=== PATIENT | female | born 1945 | race Caucasian/White ===

== ENCOUNTER 2022-09-03 05:39 | Emergency (ER) | payer MEDICARE, BC ==
[~2022-09-03] VITALS: Ht 165.1 cm; Wt 97.6 kg
[2022-09-03] MEDS ORDERED: ondansetron/PF 4mg/2ml inj IV ONE (06:50)
[2022-09-03] MEDS ORDERED: morphine 4 MG/ML inj SYRINge IV PRN (06:50)
[2022-09-03 07:06] LABS: BASOPHILS # (AUTO) 0.1 X10'3 (0-0.2); BASOPHILS % (AUTO) 0.8 % (0-1); EOSINOPHILS # (AUTO) 0.1 X10'3 (0-0.9); HEMATOCRIT 42.7 % (35.0-45.0); HEMOGLOBIN 15.2 g/dl (12.0-16.0); LYMPHOCYTES # (AUTO) 1.9 X10'3 (1.1-4.8); LYMPHOCYTES % (AUTO) 23.3 % (21-51); MEAN CORPUSCULAR HEMOGLOBIN 29.4 PG (27.0-31.0); MEAN CORPUSCULAR HGB CONC 35.6 g/dL (33.0-36.5); MEAN CORPUSCULAR VOLUME 82.7 FL (78-98); MEAN PLATELET VOLUME 7.9 FL (7.4-10.4); MONOCYTES # (AUTO) 0.9 X10'3 (0-0.9); NEUTROPHILS # (AUTO) 5.3 X10'3 (1.8-7.7); NEUTROPHILS % (AUTO) 63.9 % (42-75); PLATELET COUNT 386 X10'3 (140-440); RED BLOOD COUNT 5.17 X10'6 (4.20-5.60); RED CELL DISTRIBUTION WIDTH 13.9 % (11.5-14.5); WHITE BLOOD COUNT 8.3 X10'3 (4.5-11.0)
[2022-09-03 07:17] LABS: ALANINE AMINOTRANSFERASE 44 U/L (12-78); ALBUMIN 3.3 G/DL (3.4-5.0); ALBUMIN/GLOBULIN RATIO 0.8 (1.1-1.5); ALKALINE PHOSPHATASE 58 IU/L (46-116); ANION GAP 15 (8-16); ASPARTATE AMINO TRANSFERASE 23 U/L (10-37); BILIRUBIN,TOTAL 0.6 MG/DL (0.1-1.0); BLOOD UREA NITROGEN 21 MG/DL (7-18); BUN/CREATININE RATIO 21.6 (6.6-38.0); CALCIUM 9.1 MG/DL (8.5-10.1); CHLORIDE 91 MMOL/L (99-107); CREATININE 0.97 MG/DL (0.40-0.90); GLUCOSE 115 MG/DL (70-104); POTASSIUM 3.2 MMOL/L (3.5-5.1); SODIUM 131 MMOL/L (135-145); TOTAL CARBON DIOXIDE 25.5 MMOL/L (24-32); TOTAL PROTEIN 7.3 G/DL (6.4-8.2); eGFR 56 ML/MIN
[2022-09-03 07:24] LABS: LIPASE 265 U/L (73-393)
[2022-09-03] MEDS ORDERED: POTASSIUM BICARB 20meq eff tab 20 MEQ TABLET.EFF PO ONE (09:00)
[2022-09-03] MEDS ORDERED: proCHLORperazine 10 MG/2 ml inj IV ONE (09:25)
[2022-09-03] MEDS ORDERED: diphenhydrAMINE 50 mg/ml inj IV ONE (09:25)
[2022-09-03] MEDS ORDERED: ONDA4TAB12 PO (09:51)
[2022-09-03] MEDS ORDERED: normal saline 1000ML IV soln IVB ONE (09:55)
[2022-09-03 10:15] LABS: GLUCOSE, URINE NEGATIVE (Neg); KETONES,URINE TRACE mg/dl (Neg); LEUKOCYTE ESTERASE ,URINE NEGATIVE (Neg); NITRITES, URINE POSITIVE (Neg); OCCULT BLOOD,URINE TRACE-INTACT (Neg); PH,URINE 5.5 (4.8-8.0); PROTEIN,URINE 100 mg/dl (Neg); UROBILINOGEN,URINE 0.2 E.U/dL (0.2-1.0)
[2022-09-03 10:25] LABS: UA COLLECTION TYPE CLN CATCH MIDSTREAM
[2022-09-03 10:26] LABS: CLARITY,URINE SLIGHTLY CLOUDY (Clear); COLOR,URINE DARK YELLOW (Yellow)
[2022-09-03 10:59] LABS: BACTERIA,URINE 4+ /HPF (Neg); RBC,URINE NONE SEEN /HPF (0-2); SQUAMOUS EPITHELIAL CELL,UR MODERATE /LPF (FEW)
[2022-09-03 11:23] VITALS: BP 148/79
== END 2022-09-03 11:27 | disposition home or self-care (01) ==
LOC: ER 05:42
DX: R11.2 Nausea with vomiting, unspecified (principal); R10.9 Unspecified abdominal pain; R07.9 Chest pain, unspecified; E87.6 Hypokalemia; I10 Essential (primary) hypertension; E78.00 Pure hypercholesterolemia, unspecified; Z79.899 Other long term (current) drug therapy
CPT/HCPCS: 36415; 71045; 80053; 81001; 83690; 83880; 84484; 85025; 87088; 93005; 96374; 96375; 99285; J0780; J2270; J2405; J7030; 87077; 87186

== ENCOUNTER 2023-02-06 07:03 | Day surgery (SDC) | payer MEDICARE, BC ==
[2023-02-05 11:39] LABS: BASOPHILS # (AUTO) 0.1 X10'3 (0-0.2); BASOPHILS % (AUTO) 0.5 % (0-1); EOSINOPHILS # (AUTO) 0.2 X10'3 (0-0.9); EOSINOPHILS % (AUTO) 2.1 % (0-6); HEMATOCRIT 43.2 % (35.0-45.0); HEMOGLOBIN 14.2 g/dl (12.0-16.0); LYMPHOCYTES # (AUTO) 2.5 X10'3 (1.1-4.8); LYMPHOCYTES % (AUTO) 21.1 % (21-51); MEAN CORPUSCULAR HEMOGLOBIN 27.5 PG (27.0-31.0); MEAN CORPUSCULAR HGB CONC 32.7 g/dL (33.0-36.5); MEAN CORPUSCULAR VOLUME 83.8 FL (78-98); MEAN PLATELET VOLUME 8.7 FL (7.4-10.4); MONOCYTES # (AUTO) 1.1 X10'3 (0-0.9); NEUTROPHILS # (AUTO) 8.1 X10'3 (1.8-7.7); NEUTROPHILS % (AUTO) 67.3 % (42-75); PLATELET COUNT 252 X10'3 (140-440); RED BLOOD COUNT 5.15 X10'6 (4.20-5.60); RED CELL DISTRIBUTION WIDTH 14.8 % (11.5-14.5)
[2023-02-05 11:50] LABS: ALBUMIN 3.7 G/DL (3.4-5.0); ANION GAP 8 (8-16); BLOOD UREA NITROGEN 29 MG/DL (7-18); BUN/CREATININE RATIO 26.1 (10.0-20.0); CALCIUM 9.4 MG/DL (8.5-10.1); CHLORIDE 102 MMOL/L (99-107); CREATININE 1.11 MG/DL (0.40-0.90); GLUCOSE 101 MG/DL (70-104); POTASSIUM 3.9 MMOL/L (3.5-5.1); SODIUM 140 MMOL/L (135-145); TOTAL CARBON DIOXIDE 29.8 MMOL/L (24-32); eGFR 48 ML/MIN
[2023-02-05 11:53] LABS: APTT 25 SECONDS (22-32)
[2023-02-06] VITALS (9 sets, daily range): BP systolic 111–153; BP diastolic 68–98
[~2023-02-06] VITALS: Ht 162.6 cm; Wt 102.0 kg
[~2023-02-06 07:03] MED LIST: ONDA4TAB12 PO
[2023-02-06] MEDS ORDERED: LORazepam 0.5 MG tablet PO PRN (07:15)
[2023-02-06] MEDS ORDERED: diphenhydrAMINE 25mg capsule PO PRN (07:15)
[2023-02-06] MEDS ORDERED: normal saline 1,000 ML IV SCH (07:15)
[2023-02-06] MEDS ORDERED: PRE5T PO (07:42)
[2023-02-06] MEDS ORDERED: mag PO (07:42)
[2023-02-06] MEDS ORDERED: BIOT1CAP3 PO (07:42)
[2023-02-06] MEDS ORDERED: CIDE300T3 PO (07:42)
[2023-02-06] MEDS ORDERED: ROSU5TAB12 PO (07:42)
[2023-02-06] MEDS ORDERED: MULT-1085 PO (07:42)
[2023-02-06] MEDS ORDERED: [UNRECOGNIZED DRUG - OTHER] INH (07:42)
[2023-02-06] MEDS ORDERED: AMLO5TAB16 PO (07:42)
[2023-02-06] MEDS ORDERED: PRAM0.5T12 PO (07:42)
[2023-02-06] MEDS ORDERED: LISI40TA13 PO (07:42)
[2023-02-06] MEDS ORDERED: FLUO40CA PO (07:42)
[2023-02-06] MEDS ORDERED: CELE-85 PO (07:42)
[2023-02-06] MEDS ORDERED: fentaNYL/PF 50MCG/1 ML 2ML syringe ONE ×2 (08:56→10:18)
[2023-02-06] MEDS ORDERED: iohexol 350MG/ML 100ml bottle IV ONE ×3 (08:56→12:11)
[2023-02-06] MEDS ORDERED: midazolam 1 mg/ML 2ml injection ONE ×2 (08:56→10:18)
[2023-02-06] MEDS ORDERED: heparin 1,000unit/ml 10ml vial 10 ML ONE ×2 (08:56→10:18)
[2023-02-06] MEDS ORDERED: LIDOcaine 1% 30ml preserv. free vial ONE ×2 (09:02→10:48)
[2023-02-06] MEDS ORDERED: LIDOcaine 1% (10mg/ml) 2ml vial ONE (10:17)
[2023-02-06] MEDS ORDERED: verapamil 2.5 mg/ml inj IV ONE (10:17)
[2023-02-06] MEDS ORDERED: iohexol 350 MG/ML 50ML vial IV ONE (10:18)
[2023-02-06] MEDS ORDERED: nitroGLYCERIN-Tridil 50MG/D5W 250 ML IV ONE (10:18)
[2023-02-06] MEDS ORDERED: HYDROmorphone 1 mg/ml syringe ONE (12:49)
[2023-02-06 13:12] LABS: ISTAT HGB ART 13.3 g/dl (12.0-16.0); ISTAT Hct ART 39 %PCV (35-45); ISTAT O2 SATURATION ARTERIAL 97 % (95-98); ISTAT SOURCE ART
[2023-02-09 07:21] LABS: ISTAT Hct MIX 39 %PCV (35-45); ISTAT O2 SATURATION MIX VENOUS 67 % (60-80); ISTAT SOURCE VEN
== END 2023-02-06 18:25 | disposition home or self-care (01) ==
LOC: SSTAY O 07:03
PROVIDERS: ATTEND Internal Medicine Cardiovascular Disease
DX: R94.39 Abnormal result of other cardiovascular function study (principal); I25.10 Atherosclerotic heart disease of native coronary artery without angina pectoris; I12.9 Hypertensive chronic kidney disease with stage 1 through stage 4 chronic kidney disease, or unspecified chronic kidney disease; N18.30 Chronic kidney disease, stage 3 unspecified; E78.5 Hyperlipidemia, unspecified; G47.30 Sleep apnea, unspecified; J44.9 Chronic obstructive pulmonary disease, unspecified; Z96.651 Presence of right artificial knee joint; Z95.0 Presence of cardiac pacemaker; Z98.890 Other specified postprocedural states; Z87.891 Personal history of nicotine dependence; Z79.899 Other long term (current) drug therapy; Z79.01 Long term (current) use of anticoagulants
CPT/HCPCS: 36415; 76937; 80048; 82803; 85014; 85025; 85610; 85730; 93005; 93460; 99152; 99153; C1894; J1170; J1644; J2250; J3010; J3490; J7030; Q9967; A6258; A6449; C1725; C1751